=== PATIENT | male | born 1995 | race Caucasian/White ===

== ENCOUNTER 2019-07-28 10:59 | Emergency (ER) | payer OTHER ==
[~2019-07-28] VITALS: Ht 167.6 cm; Wt 65.9 kg
[2019-07-28 11:06] VITALS: TEMP 98.3
[2019-07-28] MEDS ORDERED: FLEXERIL 1010 MG/TAB PO (12:58)
[2019-07-28 13:55] VITALS: BP 110/70; PULSE 60
== END 2019-07-28 13:57 | disposition home or self-care (01) ==
LOC: COL.ER 10:59
DX: S39.012A Strain of muscle, fascia and tendon of lower back, initial encounter (principal); F17.210 Nicotine dependence, cigarettes, uncomplicated; V89.2XXA Person injured in unspecified motor-vehicle accident, traffic, initial encounter
CPT/HCPCS: J1885; J2360